=== PATIENT | female | born 1980 | race Asian ===

== ENCOUNTER 2020-08-20 10:25 | Outpatient (REF) | payer OTHER, SELFPAY ==
[2020-08-20 14:49] LABS: Thyroid Stimulating Hormone 0.02 uIU/mL (0.32-4.0)
[2020-08-21 14:47] LABS: Triiodothyronine T3 Total 110 ng/dL (76-181)
== END 2020-08-20 10:26 | disposition home or self-care (01) ==
LOC: HO.10HDL 10:25
PROVIDERS: Visit Provider Internal Medicine
DX: E05.00 Thyrotoxicosis with diffuse goiter without thyrotoxic crisis or storm (principal)
CPT/HCPCS: 84439; 84443; 84480

== ENCOUNTER → 2020-09-03 09:08 | Outpatient (BNVA) | payer OTHER, SELFPAY | PROVIDERS: PCP Internal Medicine; Referring Provider Internal Medicine; Visit Provider Internal Medicine | DX: Z76.89 Persons encountering health services in other specified circumstances (principal) ==

== ENCOUNTER 2020-09-23 13:06 | Outpatient (REF) | payer OTHER, SELFPAY ==
--- NOTE | 2020-09-23 13:12 | US_ITS ---
EXAMINATION: US THYROID CLINICAL INFORMATION: Nontoxic multinodular goiter. COMPARISON: Thyroid ultrasound 10/09/2019 TECHNIQUE: Linear transducer chaves-scale and color Doppler examination with attention to the region of the thyroid. FINDINGS: SIZE: Measurements of the thyroid lobes and nodules are given in sagittal, anteroposterior and transverse dimensions respectively. Right Thyroid Lobe: 5.3 x 1.6 x 1.6 cm, volume 7.2 mL. Previously 5.4 x 1.8 x 1.7 cm, volume 8.7 mL. Parenchyma: The gland echotexture is heterogeneous. Thyroid vascularity is normal. Left Thyroid Lobe: 5.0 x 1.4 x 1.8 cm, volume 6.1 mL. Previously 5.1 x 1.6 x 1.9 cm, volume 8.0 mL. Parenchyma: The gland echotexture is heterogeneous. Thyroid vascularity is normal. Isthmus: 0.3 cm in maximum AP dimension. Previously 0.3 cm. RIGHT THYROID LOBE: No nodules seen at this time. A solitary nodule was seen on the previous ultrasound exam. ISTHMUS: No nodules. LEFT THYROID LOBE: No nodules. NODES: No lymphadenopathy is seen in the tissue surrounding the thyroid gland. US/US thyroid IMPRESSION: Bilateral heterogenous thyroid gland but otherwise unremarkable. No nodules seen.
== END 2020-09-23 13:07 | disposition home or self-care (01) ==
LOC: HO.US 13:06
PROVIDERS: Visit Provider Internal Medicine
DX: E04.2 Nontoxic multinodular goiter (principal)
CPT/HCPCS: 76536

== ENCOUNTER → 2020-10-20 07:46 | Outpatient (BNVA) | payer OTHER, SELFPAY | PROVIDERS: PCP Internal Medicine; Visit Provider Internal Medicine ==

== ENCOUNTER 2020-10-28 11:35 | Outpatient (REF) | payer OTHER, SELFPAY ==
[2020-10-28 14:50] LABS: Free T4 (Free Thyroxine) 1.29 ng/dL (0.71-1.85); Thyroid Stimulating Hormone < 0.01 uIU/mL (0.32-4.0)
[2020-10-29 06:47] LABS: Triiodothyronine T3 Total 119 ng/dL (76-181)
== END 2020-10-28 11:36 | disposition home or self-care (01) ==
LOC: HO.10HDL 11:35
PROVIDERS: Visit Provider Internal Medicine
DX: E05.00 Thyrotoxicosis with diffuse goiter without thyrotoxic crisis or storm (principal); E04.2 Nontoxic multinodular goiter; E55.9 Vitamin D deficiency, unspecified
CPT/HCPCS: 36415; 82306; 84439; 84443; 84480

== ENCOUNTER 2020-11-24 08:21 | Outpatient (REF) | payer OTHER, SELFPAY ==
[2020-11-24 11:50] LABS: Free T4 (Free Thyroxine) 1.07 ng/dL (0.71-1.85); Thyroid Stimulating Hormone 0.02 uIU/mL (0.32-4.0)
[2020-11-25 20:47] LABS: Triiodothyronine T3 Total 103 ng/dL (76-181)
== END 2020-11-24 08:22 | disposition home or self-care (01) ==
LOC: HO.10HDL 08:21
PROVIDERS: Visit Provider Internal Medicine
DX: E05.00 Thyrotoxicosis with diffuse goiter without thyrotoxic crisis or storm (principal); E55.9 Vitamin D deficiency, unspecified
CPT/HCPCS: 36415; 82306; 84439; 84443; 84480

== ENCOUNTER → 2020-12-01 12:02 | Outpatient (BNVA) | payer OTHER, SELFPAY | PROVIDERS: Visit Provider Internal Medicine ==

== ENCOUNTER 2020-12-25 08:31 | Outpatient (REF) | payer OTHER, SELFPAY ==
[2020-12-25 11:11] LABS: Free T4 (Free Thyroxine) 0.82 ng/dL (0.71-1.85)
[2020-12-26 04:17] LABS: Triiodothyronine T3 Total 92 ng/dL (76-181)
== END 2020-12-25 08:32 | disposition home or self-care (01) ==
LOC: HO.10HDL 08:31
PROVIDERS: Visit Provider Internal Medicine
DX: E05.00 Thyrotoxicosis with diffuse goiter without thyrotoxic crisis or storm (principal)
CPT/HCPCS: 36415; 84439; 84480

== ENCOUNTER → 2021-02-16 10:45 | Outpatient (BNVA) | payer OTHER, SELFPAY | PROVIDERS: Visit Provider Internal Medicine ==

== ENCOUNTER 2021-02-17 09:11 | Outpatient (REF) | payer OTHER, SELFPAY ==
[2021-02-17 11:07] LABS: Free T4 (Free Thyroxine) 0.98 ng/dL (0.71-1.85); Vitamin D 25-OH Total 26.4 ng/mL (>30)
[2021-02-18 09:51] LABS: Triiodothyronine T3 Total 93 ng/dL (76-181)
== END 2021-02-17 09:12 | disposition home or self-care (01) ==
LOC: HO.10HDL 09:11
PROVIDERS: Visit Provider Internal Medicine
DX: E05.00 Thyrotoxicosis with diffuse goiter without thyrotoxic crisis or storm (principal)
CPT/HCPCS: 36415; 82306; 84439; 84443; 84480

== ENCOUNTER 2021-05-14 09:02 | Outpatient (REF) | payer OTHER, SELFPAY ==
[2021-05-14 11:14] LABS: Free T4 (Free Thyroxine) 0.98 ng/dL (0.71-1.85); Thyroid Stimulating Hormone 0.86 uIU/mL (0.32-4.0)
[2021-05-15 08:07] LABS: Triiodothyronine T3 Total 93 ng/dL (76-181)
== END 2021-05-14 09:03 | disposition home or self-care (01) ==
LOC: HO.10HDL 09:02
PROVIDERS: Visit Provider Internal Medicine
DX: E05.00 Thyrotoxicosis with diffuse goiter without thyrotoxic crisis or storm (principal)
CPT/HCPCS: 36415; 84439; 84443; 84480

== ENCOUNTER → 2021-05-18 11:31 | Outpatient (BNVA) | payer OTHER, SELFPAY | PROVIDERS: Visit Provider Internal Medicine ==

== ENCOUNTER 2022-01-21 22:28 | Emergency (ER) | payer OTHER, SELFPAY ==
[2022-01-21 23:38] VITALS: BP 127/49; PULSE 84; RESP 20; TEMP 37.1; O2SAT 99; BMI 28.0
[2022-01-22 00:13] LABS: Appearance Urine HAZY; Color Urine YELLOW; Glucose Urine UA NEG (NEG); Leukocyte Esterase Urine 1+ (NEG); Nitrite Urine NEG (NEG); Specific Gravity - Urine >= 1.030 (1.005-1.025); UACC Culture Trigger YES; Urine Blood NEG (NEG); Urine Ketones NEG (NEG); Urine Protein NEG (NEG-TRACE)
[2022-01-22 00:14] LABS: UPreg QC Valid YES; Urine Pregnancy NEGATIVE (NEGATIVE)
[2022-01-22 00:30] LABS: Bacteria Urine TRACE /LPF; Mucus Urine 2+ /LPF; RBC Urine 0 /HPF (0); Squamous Epithelial Cell Urine 3+ /LPF
--- NOTE | 2022-01-22 01:16 | ED_ITS ---
HPI - Female Genitourinary General Chief complaint: Urogenital-Female Stated complaint: gen med, requests female doctor/nurse Time Seen by Provider: 01/22/22 01:08 Source: patient Mode of arrival: ambulatory Limitations: no limitations History of Present Illness HPI Narrative: 41-year-old female presents with white clumpy vaginal discharge. States that she has had this for approximately 1 month. MD elicited complaint: vaginal discharge and genital itching Onset (ago): month(s) (1) Location of symptoms: external genitalia and vaginal Severity: moderate Female Urogenital Radiation: Non-Radiating Severity scale (1-10): 6 Quality of pain: burning Consistency: constant Vaginal discharge: white and thick/cheesy Vaginal bleeding: none Urinary symptoms: Dysuria Exacerbating factors: urination and intercourse Relieving factors: none Associated symptoms: denies other symptoms Treatment prior to arrival: OTC vaginal cream Sexual activity: Yes Patient : No Related Data Previous Rx's Medication Instructions Recorded cholecalciferol (vitamin D3) 50 50 mcg PO DAILY 30 Days #30 cap 12/24/20 mcg (2,000 unit) capsule fluconazole 150 mg tablet 150 mg PO Q3D #2 tab 01/22/22 (Diflucan) Allergies Allergy/AdvReac Type Severity Reaction Status Date / Time No Known Allergies Allergy Verified 01/21/22 23:42 Review of Systems Review of Systems: Constitutional: No Fever, No Chills ENT/Mouth: No sore throat, No Rhinorrhea Eyes: No Eye Pain, No Redness Cardiovascular: No Chest Pain, No SOB Respiratory: No Cough, No Sputum, No Wheezing Gastrointestinal: No Nausea, No Vomiting, No Diarrhea, no abdominal pain Genitourinary: positive irregular vaginal discharge, No Dysuria, No Urinary Frequency, no pelvic pain Musculoskeletal: No Myalgias Skin: No rash Neuro: No Weakness, No Headache Psych: No Anxiety/Panic, No Depression Heme/Lymph: No bruising, No Lymphadenopathy Endocrine: No Polyuria, No Polydipsia Yes all other systems are reviewed and are negative [facility] Past Medical History Attestation statement: The following information was validated with the patient. Source: old records reviewed Medical History Graves disease Multinodular thyroid Vitamin D deficiency Surgical History Hx of section Family History Family History Father No problems noted. Mother No problems noted. Social History Social History Patient Tobacco Use Status: Never used Tobacco Advance Directives: No Patient : No Physical Exam Vital Signs: Vital Signs: Last Vital Signs Temp 98.7 F 01/21/22 23:38 Pulse 84 01/21/22 23:38 Resp 20 01/21/22 23:38 BP 127/49 L 01/21/22 23:38 Pulse Ox 99 01/21/22 23:38 BMI result Body Mass Index 28.0 Appearance: Alert. Oriented X3. No acute distress. Eyes: Pupils equal, round and reactive to light. ENT: Pharynx normal. Neck: Normal inspection. Neck supple. CVS: Normal heart rate and rhythm. Pulses normal. Respiratory: No respiratory distress. Breath sounds normal. Abdomen: Soft and nontender. Genitourinary: Thick white clumpy discharge in vaginal vault, excoriated labia minora. Skin: Skin warm and dry. Normal skin color. Normal skin turgor. Extremities: No lower extremity edema. Gait well balanced well coordinated. Neuro: No motor deficit. No sensory deficit. Cranial nerves 2-12 intact Course Course Course Narrative: 41-year-old female presents with white clumpy vaginal discharge for appr oximately 1 month. States that she has been using [id number] medications with poor effect. States that she has only been sexually active with her , does not have any risk for sexually transmitted infection and politely declined testing. Physical exam consistent with vaginal candidiasis. Will treat with Diflucan. Patient verbalized understanding of and agrees to plan of care to discharge home. Verbalized understanding of signs and symptoms indicating need for emergent intervention MDM - Female Genitourinary MDM Narrative Medical decision making narrative: Candidiasis Differential Diagnosis Differential diagnosis: Likely vaginitis Medical Records Attestation: I reviewed the patient's medical records. Lab Data Attestation: I reviewed the patient's lab results. Labs: Lab Results 01/21/22 01/21/22 Range/Units 23:57 23:57 Urine Color YELLOW Urine Appearance HAZY Urine pH 6.0 (5.0-8.0) Ur Specific [place] >= 1.030 H (1.005-1.025) Urine Protein NEG (NEG-TRACE) MG/DL Urine Glucose (UA) NEG (NEG) MG/DL Urine Ketones NEG (NEG) MG/DL Urine Blood NEG (NEG) Urine Nitrite NEG (NEG) Ur Leukocyte Esterase 1+ H (NEG) Urine RBC 0 (0) /HPF Urine WBC 10-14 H (0-4) /HPF Ur Squamous Epith Cells 3+ /LPF Urine Bacteria TRACE /LPF Urine Mucus 2+ /LPF Urine Test NEGATIVE (NEGATIVE) Discharge Plan Discharge Clinical Impression: Candidiasis of female genitalia Patient Disposition: Home, Self-Care Instructions: Yeast Infection (ED) Additional Instructions: You were evaluated for abnormal vaginal discharge. Her exam is consistent with vaginal candidiasis. We gave give 1st dose of Diflucan in the emergency department. Please take 2nd dose in 3 days from now. You may consider purchasing [id number] Monistat cream to help with labial pain and irritation. Thank you for choosing this emergency department for evaluation. Please follow-up with primary care physician as needed. Return to the emergency department for any new, concerning, or worsening symptoms. Prescriptions: New fluconazole [Diflucan] 150 mg tablet 150 mg PO Q3D Qty: 2 0RF Rx Instructions: may repeat second dose 72 hrs after first dose if symptoms persist No Action cholecalciferol (vitamin D3) 50 mcg (2,000 unit) capsule 50 mcg PO DAILY 30 Days Qty: 30 11RF Interventions: ED Discharge Assessment Last Done: 01/22/22 01:35 Discharge Date/Time: 01/22/22 01:36
[2022-01-22] MEDS: Fluconazole 150 MG TABLET PO (01:34)
== END 2022-01-22 01:36 | disposition home or self-care (01) ==
LOC: HO.ED 01-22 01:29
PROVIDERS: Emergency Provider Emergency Medicine
DX: B37.3 Candidiasis of vulva and vagina (principal); Z79.899 Other long term (current) drug therapy
CPT/HCPCS: 81001; 81025; 87086; 99283; 99284

== ENCOUNTER 2022-03-19 09:07 | Outpatient (REF) | payer OTHER, SELFPAY ==
[2022-03-19 11:59] LABS: Free T4 (Free Thyroxine) 1.47 ng/dL (0.71-1.85); Thyroid Stimulating Hormone < 0.01 uIU/mL (0.32-4.0); Vitamin D 25-OH Total 23.8 ng/mL (>30)
[2022-03-20 22:27] LABS: Triiodothyronine T3 Total 170 ng/dL (76-181)
== END 2022-03-19 09:08 | disposition home or self-care (01) ==
LOC: HO.10HDL 09:07
PROVIDERS: Visit Provider Internal Medicine
DX: E05.00 Thyrotoxicosis with diffuse goiter without thyrotoxic crisis or storm (principal); E55.9 Vitamin D deficiency, unspecified
CPT/HCPCS: 36415; 82306; 84439; 84443; 84480

== ENCOUNTER 2022-12-28 23:57 | Emergency (ER) | payer OTHER, SELFPAY ==
[2022-12-29 00:45] VITALS: BP 108/65; PULSE 98; RESP 18; TEMP 36.4; O2SAT 99; BMI 26.2
--- NOTE | 2022-12-29 02:00 | ED.GENADULT ---
HPI - General Adult General Chief complaint: Back Pain/Injury Stated complaint: back pain Time Seen by Provider: 12/29/22 01:50 Source: patient, family, RN notes reviewed and old records reviewed Mode of arrival: ambulatory Limitations: no limitations History of Present Illness HPI narrative: 42-year-old female presents for evaluation of right lower back pain. Patient reports that the pain started about 2 weeks ago. She denies any specific injury. The pain radiates into her buttocks. Denies any numbness, tingling bladder or bowel incontinence. Patient reports that about 10 years ago she fell down the stairs and injured her lower back. She was not seen at the time No other complaints or concerns at the time Related Data Previous Rx's Medication Instructions Recorded cholecalciferol (vitamin D3) 50 50 mcg PO DAILY 30 days #30 caps 12/24/20 mcg (2,000 unit) capsule methimazole 5 mg tablet 5 mg PO DAILY 30 days #30 tabs 03/24/22 dexamethasone 4 mg tablet 4 mg PO BID #6 tabs 12/29/22 tramadol 50 mg tablet 50 mg PO TID PRN severe pain 12/29/22 (scale score 7-10) #10 tabs Allergies Allergy/AdvReac Type Severity Reaction Status Date / Time No Known Allergies Allergy Verified 12/29/22 00:43 Review of Systems Constitutional: Constitutional: Reports as per HPI, Denies chills, Denies fatigue, Denies fever(s), Denies headache(s) and Denies weakness ENT: Denies headache(s) Cardiovascular: Cardiovascular: Denies chest pain and Denies dyspnea Respiratory: Respiratory: Denies cough and Denies dyspnea Gastrointestinal: Gastrointestinal: Denies abdominal pain, Denies constipation and Denies vomiting Genitourinary: Genitourinary: Denies dysuria Musculoskeletal: Musculoskeletal: Reports back pain and Denies tingling Neurologic: Denies headache(s), Denies focal weakness, Denies Sensory deficit (Neuro), Denies tingling, Denies paresthesias and Denies weakness Endocrine: Endocrine: Denies fatigue PMF Past Medical History Medical History (Updated 12/29/22 @ 02:02 by Gage Yuen) Graves disease Multinodular thyroid Vitamin D deficiency Surgical History Hx of section Family History Family History Father No problems noted. Mother No problems noted. Social History Social History Patient Tobacco Use Status: Never used Tobacco Advance Directives: No Advance Directives Information Provided: Yes Physical Exam ED Vital Signs: Vital Signs - 24 hr 12/29/22 00:45 Temperature 97.5 F Pulse Rate 98 Respiratory Rate 18 Blood Pressure 108/65 Pulse Oximetry 99 Oxygen Delivery Method Room Air BMI result Body Mass Index 26.2 Const General: healthy appearing, comfortable, no acute distress, alert and awake Nutritional Appearance: well nourished Orientation/consciousness: patient oriented x3 HENMT Head: Yes normocephalic and Yes atraumatic Throat: Yes posterior oropharynx normal Eyes Eyelids: Yes eyelids normal Conjunctivae: conjunctivae normal Sclerae: sclerae normal Corneas: corneas normal Pupils: Equal, round and reactive pupils present EOM: EOMs intact bilaterally Neck Neck: Yes full ROM Resp Effort & Inspection: normal respiratory effort, able to speak in complete sentences, no audible wheezes and not labored Auscultation: clear to auscultation bilaterally Cardio Rate: regular rate Rhythm: regular rhythm GI Inspection: No distended Palpation (GI): Soft to palpation, not firm, nontender, no guarding and not rigid Auscultation: normoactive bowel sounds Back/Spine/Pelvis Other: Tenderness over the sacroiliac joint on the right. There is mild right lumbar paraspinous region tenderness. No vertebral tenderness, step-offs or deformities. Straight leg raise positive on the right. Skin General skin exam: no rashes or lesions noted and elasticity normal Neuro General: patient oriented x3 Cranial nerves: Yes CN's II-XII intact bilaterally, Yes Equal, round and reactive pupils present and Yes Bilaterally intact EOM present Cognition (Neuro): normal cognition Sensory Exam: No Sensory deficit (Neuro) Extrem Other: Moving all extremities well without any obvious deformities Medical Decision Making Medical Decision Making MDM Narrative: Patient clinically has acute right sciatica. No warning signs for cauda equina syndrome. There was no recent injury to 1 emergent imaging. Will treat the patient's pain with dexamethasone and tramadol in addition to obxc-mcg-yagydte meds. Patient will follow up with PCP Differential Diagnosis Sciatica Lumbar radiculopathy Disc herniation Muscle spine Discharge Plan Discharge Clinical Impression: Sciatica Patient Disposition: Home, Self-Care Instructions: Sciatica (ED) Additional Instructions: Your pain is most likely related to a pinched nerve in the lower back You may continue to use ibuprofen/Tylenol Take dexamethasone twice daily for 3 days Use tramadol for severe, breakthrough pain. This may make you sleepy, do not drink alcohol or drive after taking it You may also use warm compresses Prescriptions: New dexamethasone 4 mg tablet 4 mg PO BID Qty: 6 0RF tramadol 50 mg tablet 50 mg PO TID PRN (Reason: severe pain (scale score 7-10)) Qty: 10 0RF No Action cholecalciferol (vitamin D3) 50 mcg (2,000 unit) capsule 50 mcg PO DAILY 30 Days Qty: 30 11RF methimazole 5 mg tablet 5 mg PO DAILY 30 Days Qty: 30 3RF Stand Alone Forms: Work/School Release
[2022-12-29] MEDS: dexAMETHasone 4 MG TABLET PO (02:28)
[2022-12-29] MEDS: traMADoL HCL 50 MG TABLET PO (02:28)
--- NOTE | 2022-12-29 02:30 | PC.NURSE ---
RN to bedside to medicate pt per provider orders for pain and sciatica like pain.
== END 2022-12-29 02:30 | disposition home or self-care (01) ==
PROVIDERS: Emergency Provider Internal Medicine
DX: M54.41 Lumbago with sciatica, right side (principal)
CPT/HCPCS: 99283; J8540

== ENCOUNTER 2023-01-02 21:54 | Emergency (ER) | payer OTHER, SELFPAY ==
[2023-01-02 22:05] VITALS: BP 115/65; PULSE 80; RESP 18; TEMP 36.3; O2SAT 98; BMI 25.9
--- NOTE | 2023-01-03 00:28 | ED_ITS ---
HPI - Allergic Reaction General Chief complaint: Allergic Reaction Stated complaint: rash on arm Time Seen by Provider: 01/03/23 00:25 Source: patient Mode of arrival: ambulatory Limitations: no limitations History of Present Illness HPI narrative: Patient with no history of allergic reaction started on tramadol dexamethasone 5 days ago for back pain is generalized maculopapular rash-within 48 hours of taking tramadol with itching no shortness of breath no oral lesions Related Data Previous Rx's Medication Instructions Recorded cholecalciferol (vitamin D3) 50 50 mcg PO DAILY 30 days #30 caps 12/24/20 mcg (2,000 unit) capsule methimazole 5 mg tablet 5 mg PO DAILY 30 days #30 tabs 03/24/22 dexamethasone 4 mg tablet 4 mg PO BID #6 tabs 12/29/22 tramadol 50 mg tablet 50 mg PO TID PRN severe pain 12/29/22 (scale score 7-10) #10 tabs diphenhydramine HCl 25 mg capsule 50 mg PO TID PRN allergy symptoms 01/03/23 (Benadryl) #30 caps Allergies Allergy/AdvReac Type Severity Reaction Status Date / Time tramadol Allergy Intermediate Rash Verified 01/03/23 00:33 Review of Systems Review of Systems: Yes all other systems are reviewed and are negative [facility] Past Medical History Medical History (Updated 01/03/23 @ 00:37 by Sherman Mitchell MD) Graves disease Multinodular thyroid Vitamin D deficiency Surgical History Hx of section Family History Family History Father No problems noted. Mother No problems noted. Social History Social History Patient Tobacco Use Status: Never used Tobacco Physical Exam ED Vital Signs: Vital Signs - 24 hr 01/02/23 22:05 Temperature 97.3 F Pulse Rate 80 Respiratory Rate 18 Blood Pressure 115/65 Pulse Oximetry 98 Oxygen Delivery Method Room Air BMI result Body Mass Index 25.9 Appearance: Alert. Oriented X3. No acute distress. ENT: Pharynx normal. Oral Mucosa moist no oral lesion Neck: Normal inspection. Neck supple. CVS: Normal heart rate and rhythm. Pulses normal. Respiratory: No respiratory distress. Equal air entry bilateral, no wheezing/rales/rhonchi Abdomen: Soft and nontender. Bowel sounds are present, Skin: Skin warm and dry. Macular papular rash generalized Extremities: No lower extremity edema. No calf tenderness Neuro: Oriented X 3. Medical Decision Making Medical Decision Making MDM Narrative: Likely patient allergic to tramadol. Will discontinue Tramadol Benadryl for allergic-rash Discharge Plan Discharge Clinical Impression: Allergic reaction Patient Disposition: Home, Self-Care Instructions: General Allergic Reaction (ED) Additional Instructions: You are Likely allergic to tramadol stop taking tramadol Benadryl 1-2 tablets every 6 hours as needed Follow with PCP if not better Prescriptions: New diphenhydramine HCl [Benadryl] 25 mg capsule 50 mg PO TID PRN (Reason: allergy symptoms) Qty: 30 0RF No Action cholecalciferol (vitamin D3) 50 mcg (2,000 unit) capsule 50 mcg PO DAILY 30 Days Qty: 30 11RF dexamethasone 4 mg tablet 4 mg PO BID Qty: 6 0RF tramadol 50 mg tablet 50 mg PO TID PRN (Reason: severe pain (scale score 7-10)) Qty: 10 0RF methimazole 5 mg tablet 5 mg PO DAILY 30 Days Qty: 30 3RF
--- OUTSIDE RECORDS SUMMARY | 2023-01-03 00:30 | XMS_ITS | Continuity of Care Document ---
Author Name Unknown Organization [facility] Address [address] [place] [address]- Care Team Providers [facility] Director Name Role Phone Not on Staff, PCP Primary Care Physician Unavail able Encounter [facility] Date(s): 08/18/22 - 09/17/22 [facility] [address] [place] [id number]- Patient Care team information Care Team Personnel Name: Not on Staff, PCP Position: S Physician (General Medicine) Member Role: PCP
[2023-01-03] MEDS: diphenhydrAMINE HCL 25 MG CAPSULE 50 MG PO (01:10)
== END 2023-01-03 01:13 | disposition home or self-care (01) ==
PROVIDERS: Emergency Provider Internal Medicine
DX: L23.9 Allergic contact dermatitis, unspecified cause (principal); Z79.899 Other long term (current) drug therapy
CPT/HCPCS: 99283

== ENCOUNTER 2023-05-05 08:52 | Outpatient (REF) | payer OTHER, SELFPAY ==
[2023-05-05 11:29] LABS: Free T4 (Free Thyroxine) 0.99 ng/dL (0.71-1.85); Thyroid Stimulating Hormone 0.15 uIU/mL (0.32-4.0)
[2023-05-07 04:34] LABS: Triiodothyronine T3 Total 117 ng/dL (76-181)
== END 2023-05-05 08:53 | disposition home or self-care (01) ==
LOC: HO.10HDL 08:52
PROVIDERS: Visit Provider Internal Medicine
DX: E04.2 Nontoxic multinodular goiter (principal); E05.00 Thyrotoxicosis with diffuse goiter without thyrotoxic crisis or storm
CPT/HCPCS: 36415; 84439; 84443; 84480

== ENCOUNTER 2023-05-31 10:37 | Outpatient (AMB) | payer OTHER, SELFPAY ==
--- NOTE | 2023-05-31 10:37 | MHC.OFFVIS ---
Intake Vital Signs 05/31/23 10:38 Height 5 ft 2 in Weight 145 lb 8.081 oz BMI 26.6 BP 104/64 Blood Pressure Location Lt brachial Position Sitting Pulse 72 Pulse Source Pulse Oximeter Intake Visit Reasons: Hyperthyroidism/Ohri Intake Note: New patient to Dr. Ennis present today for Hyperparathyroidism follow up visit. Previously followed by Dr. López. Side Stitcher Required: No Accompanied by: Self / Same As Patient Allergies tramadol Allergy (Intermediate, Verified 05/31/23 10:42) Rash HPI HPI Comments History of Present Illness Details 43 YO F with no significant PMHx who is seen in F/U for Hyperthyroidism. Due to Graves disease She had labs checked 07/24/19 by her PCP which revealed suppressed TSH of <0.01 with elevated FT4 of 2.79. TG AB was 4, and TPO antibody of 9, not significantly elevated. Calcium was 10.1 with Albumin of 3.9 and Vitamin D of 18.5. She was subsequently referred to Endocrinology. After her initial visit with wi TFTs were repeated 10/01/18 with TSH suppressed to <0.01. FT4 was elevated to 2.24 and TT3 also elevated to 295. TRAB was positive, with mild elevation of TPO and TG antibodies. TSI was negative. Her Calcium was also found to be high normal with an inappropriately normal PTH. Vitamin D was 15.3. She underwent Thyroid Uptake and Scan 10/26/2019 which revealed Uptake at 4 hours elevated to 51%, with 23 hour uptake elevated to 71.3%. There was some heterogeneity in the right lobe involving the mid and lower poles but no discrete well delineated focus of increased or decreased activity was visualized. The overall trapping function was markedly increased diffusely. She also had a thyroid US which revealed a hypoechoic/anechoic nodule within the R lobe, measuring 0.9 cm. Thyroid vascularity was increased, but the US was otherwise largely WNL. This was repeated 09/23/2020 with no visualization of the nodule. The gland appeared heterogenous and hypervascular. After lengthy discussion decision was made to proceed with I131 ablation, however after initial consultation with nuclear medicine this was determined to not be a viable option for this patient given that she works in a [employer] and is unwilling to participate in isolation procedures for the recommended time period after treatment. Decision was then made to initiate Methimazole 10 mg PO daily. She had a rash which she felt was related to the methimazole, so methimazole was stopped. After our last visit she opted to resume Methimazole as the rash did not improve after months off methimazole. She resumed this with no recurrence of the rash, but then stopped it of her own accord in approximately February 2021. Her TFTs initially remained normal, but now are in the hyperthyroid range. Today she reports feeling well. She is having no symptoms of hyper or hypothyroidism. Thyroid US: 09/23/2020 Right Thyroid Lobe: 5.3 x 1.6 x 1.6 cm, volume 7.2 mL. Previously 5.4 x 1.8 x 1.7 cm, volume 8.7 mL. Parenchyma: The gland echotexture is heterogeneous. Thyroid vascularity is normal. Left Thyroid Lobe: 5.0 x 1.4 x 1.8 cm, volume 6.1 mL. Previously 5.1 x 1.6 x 1.9 cm, volume 8.0 mL. Parenchyma: The gland echotexture is heterogeneous. Thyroid vascularity is normal. Isthmus: 0.3 cm in maximum AP dimension. Previously 0.3 cm. RIGHT THYROID LOBE: No nodules seen at this time. A solitary nodule was seen on the previous ultrasound exam. ISTHMUS: No nodules. LEFT THYROID LOBE: No nodules. NODES: No lymphadenopathy is seen in the tissue surrounding the thyroid gland. Thyroid Uptake and Scan: 10/26/2019 FINDINGS: The uptake is 51.0% at 4 hours and 71.3% at 23 hours. The radioiodine uptake is markedly elevated. The radiopertechnetate thyroid scintigram demonstrates the thyroid gland to be normal in size.. There is some heterogeneity in the right lobe involving the mid and lower poles but no discrete well delineated focus of increased or decreased activity is visualized. A faint midline pyramidal lobe is visualized. The overall trapping function is markedly increased diffusely. The ultrasound study dated 10/09/2019 showed a normal sized thyroid gland with a subcentimeter nodule in the mid right lobe. This may be in part responsible for the mild heterogeneity noted in this region but a nodule at this site is not well delineated on this radionuclide scan. No other nodules are visualized on the ultrasound study. IMPRESSION: Markedly increased radioiodine uptake and trapping function in a thyroid gland that is normal in size with mild heterogeneity. These findings are most consistent with Graves' disease. There is some heterogeneity in the right lobe, and this may be in part due to the small nodule visualized on the recent ultrasound study, but heterogeneity such as this is common in Graves' disease and this is therefore nonspecific. No discrete nodules are well visualized on this radionuclide scan. Labs: Laboratory Tests 03/19/22 03/19/22 09:10 09:10 25-OH Vitamin D To suleman 23.8 TSH < 0.01 L Free T4 1.47 Total T3 170 She is currently off methimazole for couple of yrs [facility] Medical History (Updated 01/04/23 @ 00:02 by Ember Madsen) Graves disease Multinodular thyroid Vitamin D deficiency Surgical History Hx of section Family History Father No problems noted. Mother No problems noted. Social History Patient Tobacco Use Status: Never used Tobacco Physical Exam Vital Signs: Last Vital Signs Pulse 72 05/31/23 10:38 BP 104/64 05/31/23 10:38 BMI result Body Mass Index 26.6 Const Other: Thyroid gland is top normal size weighs about 20 g. There is a mild tremor present in the upper extremities Assessment & Plan Assessment & Plan (1) Graves disease: Code(s): E05.00 - Thyrotoxicosis with diffuse goiter without thyrotoxic crisis or storm Plan: This is a 43-year-old female with a history of hyperthyroidism due to Graves disease currently off methimazole with mild degree of hyperthyroidism Plan is to have a discussion with the patient regarding either observing or restarting low-dose of methimazole. Patient is adamant about not wanting to start methimazole again. She feels clinically euthyroid. Will reassess thyroid function studies along with TRAB antibodies in about 3-4 months time. Did talk about options to treat with the patient including re-initiation of methimazole vs radioactive iodine vsr surgery Orders: Orders Triiodothyronine T3 Free 4 Months E05.00 - Thyrotoxicosis with diffuse goiter without thyrotoxic crisis or storm Free T4 (Free Thyroxine) 4 Months E05.00 - Thyrotoxicosis with diffuse goiter without thyrotoxic crisis or storm Thyroid Stimulating Hormone 4 Months E05.00 - Thyrotoxicosis with diffuse goiter without thyrotoxic crisis or storm Thyrotropin Receptor Antibody 4 Months E05.00 - Thyrotoxicosis with diffuse goiter without thyrotoxic crisis or storm Coding Level of Care Code Est Pt Level 3 (87922) Diagnoses Graves disease E05.00
[2023-05-31 10:38] VITALS: BP 104/64; PULSE 72; BMI 26.6
== END 2023-05-31 11:36 | disposition home or self-care (01) ==
PROVIDERS: Visit Provider Internal Medicine Endocrinology, Diabetes & Metabolism
DX: E05.00 Thyrotoxicosis with diffuse goiter without thyrotoxic crisis or storm (principal)
CPT/HCPCS: 99213

== ENCOUNTER → 2023-05-31 10:37 | Outpatient (BNVA) | payer OTHER, SELFPAY | PROVIDERS: Visit Provider Internal Medicine Endocrinology, Diabetes & Metabolism | DX: E05.00 Thyrotoxicosis with diffuse goiter without thyrotoxic crisis or storm (principal) | CPT/HCPCS: 99212 ==

== ENCOUNTER 2024-02-02 08:15 | Outpatient (REF) | payer OTHER, SELFPAY ==
[2024-02-02 12:23] LABS: Free T4 (Free Thyroxine) 1.11 ng/dL (0.71-1.85); Thyroid Stimulating Hormone 0.44 uIU/mL (0.32-4.0)
[2024-02-06 19:53] LABS: Thyrotropin Receptor Antibody 1.21 IU/L (<=2.00)
== END 2024-02-02 08:16 | disposition home or self-care (01) ==
LOC: HO.10HDL 08:15
PROVIDERS: Visit Provider Internal Medicine Endocrinology, Diabetes & Metabolism
DX: E05.00 Thyrotoxicosis with diffuse goiter without thyrotoxic crisis or storm (principal)
CPT/HCPCS: 36415; 83520; 84439; 84443; 84481

== ENCOUNTER 2024-02-07 14:08 | Outpatient (AMB) | payer OTHER, SELFPAY ==
--- NOTE | 2024-02-07 14:10 | MHC.OFFVIS ---
Vital Signs 02/07/24 14:11 Height 5 ft 2 in Weight 149 lb 0.52 oz BMI 27.3 BP 98/62 Blood Pressure Location Lt brachial Position Sitting Pulse 67 Pulse Source Pulse Oximeter Intake Visit Reasons: f/u hyperthyroidism Intake Note: Patient presents today for Hyperthyroidism follow up. Pharmacy Technician Instructor Required: No Accompanied by: Self / Same As Patient Allergies tramadol Allergy (Intermediate, Verified 02/07/24 14:14) Rash Medication List - Last Reconciled 02/07/24 by Cameron Ennis MD No Known Home Meds HPI Comments Details: 43 YO F with no significant PMHx who is seen in F/U for Hyperthyroidism. Due to Graves disease She had labs checked 07/24/19 by her PCP which revealed suppressed TSH of <0.01 with elevated FT4 of 2.79. TG AB was 4, and TPO antibody of 9, not significantly elevated. Calcium was 10.1 with Albumin of 3.9 and Vitamin D of 18.5. She was subsequently referred to Endocrinology. After her initial visit with hi TFTs were repeated 10/01/18 with TSH suppressed to <0.01. FT4 was elevated to 2.24 and TT3 also elevated to 295. TRAB was positive, with mild elevation of TPO and TG antibodies. TSI was negative. Her Calcium was also found to be high normal with an inappropriately normal PTH. Vitamin D was 15.3. She underwent Thyroid Uptake and Scan 10/26/2019 which revealed Uptake at 4 hours elevated to 51%, with 23 hour uptake elevated to 71.3%. There was some heterogeneity in the right lobe involving the mid and lower poles but no discrete well delineated focus of increased or decreased activity was visualized. The overall trapping function was markedly increased diffusely. She also had a thyroid US which revealed a hypoechoic/anechoic nodule within the R lobe, measuring 0.9 cm. Thyroid vascularity was increased, but the US was otherwise largely WNL. This was repeated 09/23/2020 with no visualization of the nodule. The gland appeared heterogenous and hypervascular. After lengthy discussion decision was made to proceed with I131 ablation, however after initial consultation with nuclear medicine this was determined to not be a viable option for this patient given that she works in a [employer] and is unwilling to participate in isolation procedures for the recommended time period after treatment. Decision was then made to initiate Methimazole 10 mg PO daily. She had a rash which she felt was related to the methimazole, so methimazole was stopped. After our last visit she opted to resume Methimazole as the rash did not improve after months off methimazole. She resumed this with no recurrence of the rash, but then stopped it of her own accord in approximately February 2021. Her TFTs initially remained normal, but now are in the hyperthyroid range. Today she reports feeling well. She is having no symptoms of hyper or hypothyroidism. Thyroid US: 09/23/2020 Right Thyroid Lobe: 5.3 x 1.6 x 1.6 cm, volume 7.2 mL. Previously 5.4 x 1.8 x 1.7 cm, volume 8.7 mL. Parenchyma: The gland echotexture is heterogeneous. Thyroid vascularity is normal. Left Thyroid Lobe: 5.0 x 1.4 x 1.8 cm, volume 6.1 mL. Previously 5.1 x 1.6 x 1.9 cm, volume 8.0 mL. Parenchyma: The gland echotexture is heterogeneous. Thyroid vascularity is normal. Isthmus: 0.3 cm in maximum AP dimension. Previously 0.3 cm. RIGHT THYROID LOBE: No nodules seen at this time. A solitary nodule was seen on the previous ultrasound exam. ISTHMUS: No nodules. LEFT THYROID LOBE: No nodules. NODES: No lymphadenopathy is seen in the tissue surrounding the thyroid gland. Thyroid Uptake and Scan: 10/26/2019 FINDINGS: The uptake is 51.0% at 4 hours and 71.3% at 23 hours. The radioiodine uptake is markedly elevated. The radiopertechnetate thyroid scintigram demonstrates the thyroid gland to be normal in size.. There is some heterogeneity in the right lobe involving the mid and lower poles but no discrete well delineated focus of increased or decreased activity is visualized. A faint midline pyramidal lobe is visualized. The overall trapping function is markedly increased diffusely. The ultrasound study dated 10/09/2019 showed a normal sized thyroid gland with a subcentimeter nodule in the mid right lobe. This may be in part responsible for the mild heterogeneity noted in this region but a nodule at this site is not well delineated on this radionuclide scan. No other nodules are visualized on the ultrasound study. IMPRESSION: Markedly increased radioiodine uptake and trapping function in a thyroid gland that is normal in size with mild heterogeneity. These findings are most consistent with Graves' disease. There is some heterogeneity in the right lobe, and this may be in part due to the small nodule visualized on the recent ultrasound study, but heterogeneity such as this is common in Graves' disease and this is therefore nonspecific. No discrete nodules are well visualized on this radionuclide scan. Labs: Laboratory Tests 03/19/22 03/19/22 09:10 09:10 25-OH Vitamin D Total 23.8 TSH < 0.01 L Free T4 1.47 Total T3 170 She is currently off methimazole [facility] Medical History (Updated 01/04/23 @ 00:02 by Ember Madsen) Vitamin D deficiency Multinodular thyroid Graves disease Surgical History Hx of section Family History Father No problems noted. Mother No problems noted. Social History Patient Tobacco Use Status: Never used Tobacco Physical Exam Vital Signs: Last Vital Signs Pulse 67 02/07/24 14:11 BP 98/62 02/07/24 14:11 BMI result Body Mass Index 27.3 Const Other: Thyroid gland is top normal size weighs about 20 g. There is a mild tremor present in the upper extremities Assessment & Plan Assessment & Plan (1) Graves disease: Code(s): E05.00 - Thyrotoxicosis with diffuse goiter without thyrotoxic crisis or storm Category: Medical Plan: This is a 43-year-old female with a history of hyperthyroidism due to Graves disease currently off methimazole . Appears to be clinically and biochemically euthyroid with negative antibody Plan is to have patient follow-up with the primary care provider. She returned back to endocrinology should she have recurrence of hyperthyroidism Coding Level of Care Code Est Pt Level 3 (44493) Diagnoses Graves disease E05.00
[2024-02-07 14:11] VITALS: BP 98/62; PULSE 67; BMI 27.3
== END 2024-02-07 14:28 | disposition home or self-care (01) ==
PROVIDERS: Visit Provider Internal Medicine Endocrinology, Diabetes & Metabolism
DX: E05.00 Thyrotoxicosis with diffuse goiter without thyrotoxic crisis or storm (principal)
CPT/HCPCS: 99213

== ENCOUNTER → 2024-02-07 14:08 | Outpatient (BNVA) | payer OTHER, SELFPAY | PROVIDERS: Visit Provider Internal Medicine Endocrinology, Diabetes & Metabolism | DX: E05.00 Thyrotoxicosis with diffuse goiter without thyrotoxic crisis or storm (principal) | CPT/HCPCS: 99212 ==

== ENCOUNTER 2024-04-17 10:19 | Outpatient (REF) | payer OTHER, SELFPAY ==
--- NOTE | ~2024-04-17 | MM_ITS ---
EXAMINATION: MM SCREENING DIGITAL BREAST TOMOSYNTHESIS, BILATERAL CLINICAL INFORMATION: Screening. Asymptomatic. COMPARISON: Mammography: There are no prior mammograms for comparison. TECHNIQUE: Digital breast tomosynthesis is performed in both the craniocaudal and mediolateral oblique views along with computer-aided detection (CAD). Synthesized 2D images are generated from the tomosynthesis. FINDINGS: The breasts are extremely dense, which lowers the sensitivity of mammography (ACR BI-RADS breast composition Category d). There are no significant masses, abnormal calcifications, or other abnormalities. MM/MM tomosynthesis screening BI IMPRESSION: No mammographic evidence of malignancy. ASSESSMENT: BI-RADS BI-RADS 1 - Negative RECOMMENDATION: Routine annual mammography screening. 1 year F/U This examination should not preclude the clinical evaluation of a suspicious palpable abnormality. This patient's information was entered into a reminder system with a target due date for their next mammogram.
== END 2024-04-17 10:20 | disposition home or self-care (01) ==
LOC: HO.MAMMO 10:19
PROVIDERS: PCP Internal Medicine; Visit Provider Internal Medicine
DX: Z12.31 Encounter for screening mammogram for malignant neoplasm of breast (principal)
CPT/HCPCS: 77063; 77067

== ENCOUNTER → 2024-04-17 10:30 | Outpatient (BNV) | payer OTHER, SELFPAY | PROVIDERS: PCP Internal Medicine; Visit Provider Radiology Diagnostic Radiology | DX: Z12.31 Encounter for screening mammogram for malignant neoplasm of breast (principal) | CPT/HCPCS: 77063; 77067 ==

== ENCOUNTER 2024-06-25 08:08 | Outpatient (REF) | payer OTHER, SELFPAY ==
[2024-06-25 08:35] LABS: MANUAL DIFF FLAG NO
[2024-06-25 09:09] LABS: Basophils Percent Auto 0.6 % (0-2); Eosinophils Absolute Auto 0.1 X10*3/uL (0.0-0.4); Eosinophils Percent Auto 1.4 % (0-4); Hematocrit 26.1 % (37.0-47.0); Hemoglobin 7.2 g/dl (12.0-16.0); Imm Gran Abs Auto 0.02 X10*3/uL (0.00-0.03); Imm Gran Pct Auto 0.3 % (0.0-0.4); Lymphocytes Percent Auto 32.4 % (20-40); Mean Corpuscular HGB Conc 27.6 g/dl (31.0-35.0); Mean Corpuscular Hemoglobin 17.9 pg (27.0-33.0); Monocytes Absolute Auto 0.3 X10*3/uL (0.1-1.2); Monocytes Percent Auto 4.8 % (2-11); Neutrophils Absolute Auto 3.8 x10*3/uL (2.0-8.3); Neutrophils Percent Auto 60.5 % (45-73); Platelet Count 398 X10*3/uL (160-400); Red Blood Count 4.02 X10*6/uL (4.20-5.50); Red Cell Distribution Width 19.9 % (11.0-16.0); White Blood Count 6.3 X10*3/uL (4.8-10.8)
[2024-06-25 09:12] LABS: Mean Corpuscular Volume 64.9 fL (80.0-98.0)
[2024-06-25 09:54] LABS: Alanine Aminotransferase 10 U/L (0-31); Albumin Level 4.2 g/dL (3.5-5.0); Alkaline Phosphatase 51 U/L (39-117); Anion Gap 10 (12-20); Aspartate Amino Transferase 13 U/L (5-31); Bilirubin Total 0.4 mg/dL (0.0-1.0); Blood Urea Nitrogen 11 mg/dL (9-16); Calcium 9.6 mg/dL (8.4-10.2); Carbon Dioxide 25 mmol/L (22-29); Chloride 108 mmol/L (96-108); Cholesterol 176 mg/dL (<200); Estimated Glomerular Filt Rate > 60; Glucose Random 95 mg/dL (60-115); HDL Cholesterol 40 mg/dL (>40); LDL Cholesterol Calculated 102 mg/dL (<100); Potassium 4.2 mmol/L (3.3-5.1); Sodium 139 mmol/L (135-145); Triglycerides 170 mg/dL (<150)
== END 2024-06-25 08:09 | disposition home or self-care (01) ==
LOC: HO.LAB 08:08
PROVIDERS: PCP Internal Medicine; Visit Provider Internal Medicine
DX: Z00.00 Encounter for general adult medical examination without abnormal findings (principal); B37.31 Acute candidiasis of vulva and vagina; Z12.4 Encounter for screening for malignant neoplasm of cervix; Z13.31 Encounter for screening for depression
CPT/HCPCS: 36415; 80053; 80061; 85025